=== PATIENT | female | born 1955 | race Caucasian/White ===

== ENCOUNTER → 2016-05-10 | Outpatient (CLI) | payer BC ==
[~2016-05-10] MED LIST: ACET325T95 PO; CALC600T9 PO; GLUC10007 PO; GLUC500C4 PO; IBUP-1459 PO; OXYC-57 PO
--- NOTE | 2016-05-11 12:25 | MAMMOGRAPHY REPORT ---
BILATERAL DIGITAL SCREENING MAMMOGRAM TOMOSYNTHESIS WITH CAD: 05/10/2016 CLINICAL HISTORY: Routine screening. Patient has no complaints. TECHNIQUE: Breast tomosynthesis in addition to standard 2D mammography was performed. Current study was also evaluated with a Computer Aided Detection (CAD) system. COMPARISON: Comparison is made to exams dated: 05/09/2015 mammogram, 04/29/2013 mammogram, 05/05/2014 mammogram, 04/16/2012 mammogram, 04/03/2011 mammogram, and 03/08/2010 mammogram - [facility]. BREAST COMPOSITION: The tissue of both breasts is extremely dense, which lowers the sensitivity of mammography. FINDINGS: No suspicious masses, calcifications, or areas of architectural distortion are noted in e ither breast. There has been no significant interval change compared to prior exams. Scattered bilat eral benign-appearing calcifications are not significantly changed. Asymmetry in the left subareola r breast on the MLO view is similar to prior exams including the 2007 exam, and felt to represent th e patient's normal fibroglandular tissue pattern. IMPRESSION: ACR BI-RADS CATEGORY 2: BENIGN There is no mammographic evidence of malignancy. A 1 year screening mammogram is recommended. The p atient will receive written notification of the results. Approximately 10% of breast cancers are not detected with mammography. A negative mammographic repor t should not delay biopsy if a clinically suggestive mass is present. Ragini Hilario M.D. /:05/11/2016 07:38:10 Director Of Sales And Marketing: Julita MOREL(Santos)(M), [facility] letter sent: Normal 1/2 BI-RADS Code: ACR BI-RADS Category 2: Benign
== END | disposition home or self-care (01) ==
LOC: C.MAMM 16:34
PROVIDERS: ATTEND Internal Medicine
DX: Z12.31 Encounter for screening mammogram for malignant neoplasm of breast (principal)

== ENCOUNTER → 2016-05-21 | Outpatient (CLI) | payer BC | END | disposition home or self-care (01) | LOC: C.LABSPEC 09:58 | PROVIDERS: ATTEND Internal Medicine | DX: Z12.11 Encounter for screening for malignant neoplasm of colon (principal) ==

== ENCOUNTER 2016-12-26 10:08 | Emergency (ER) | payer BC, OTHER ==
[~2016-12-26] VITALS: Ht 167.6 cm; Wt 56.6 kg
[~2016-12-26 10:08] MED LIST changes: -CALC600T9 PO; -GLUC500C4 PO; -OXYC-57 PO
[2016-12-26 10:17] VITALS: TEMP 36.6; Ht 167.6 cm; Wt 56.6 kg
--- NOTE | 2016-12-26 11:42 | DIAGNOSTIC IMAGING REPORT ---
CT FACIAL BONES-MXILLOFAC WITHOUT CT DOSE: 561.29 mGycm CLINICAL HISTORY: Facial pain status post trauma. Nasal deformity. COMPARISON STUDY: No previous studies for comparison. TECHNIQUE: Helical images were acquired in the transverse plane. The study was reviewed and analyzed on the independent 3-D workstation. A dose lowering technique was utilized adhering to the principles of ALARA. There is right frontal scalp edema. There is left maxilla sinus mucosal thickening. The pterygoid plates appear intact. The zygomatic arches appear intact. The globes appear intact. There is no evidence of orbital emphysema. The orbital alexander and floor appear intact. The mandibular condyles appear intact. There is nasal septal deviation to the right. There is a right-sided nasal septal spur. There are bilateral nasal bone fractures, with leftward displacement.. IMPRESSION: Bilateral nasal bone fractures. Electronically signed by: Geoff Mireles M.D. 12/26/2016 11:40 AM Dictated Date/Time: 12/26/2016 11:38 AM
--- NOTE | 2016-12-26 11:43 | DIAGNOSTIC IMAGING REPORT ---
HEAD WITHOUT CONTRAST (CT) CLINICAL HISTORY: 61 years-old Female presenting with fall, head injury, nose deformity. TECHNIQUE: Multidetector CT imaging of the head was performed without the use of intravenous contrast. IV contrast: None. A dose lowering technique was used consistent with the principles of ALARA (as low as reasonably achievable). COMPARISON: None. CT DOSE (mGy.cm): The estimated cumulative dose is 638.56 mGycm. FINDINGS: [employer] topogram: Unremarkable. Ventricles and sulci normal in size. Brain parenchyma normal in appearance with preserved trinidad-white differentiation. No mass effect or midline shift. No hemorrhage or acute territorial infarct. No extra-axial fluid collection. Paranasal sinuses and mastoid air cells clear. Soft tissue swelling over the right frontal region with possible minimal subgaleal hematoma. Leftward deviated and mildly comminuted nasal bone fractures. Rightward deviation of the osseous nasal septum. IMPRESSION: 1. No acute intracranial pathology. 2. Contusion and/or small subgaleal hematoma in the right frontal region without subjacent injury. 3. Leftward deviated a mildly comminuted nasal bone fractures. 4. Deviation of the osseous nasal septum could indicate acute or chronic injury. Electronically signed by: Lev Whyte M.D. 12/26/2016 11:41 AM Dictated Date/Time: 12/26/2016 11:39 AM
[2016-12-26 11:55] VITALS: BP 151/82; PULSE 62; O2SAT 100
--- NOTE | 2016-12-26 12:08 | EMERGENCY ROOM VISIT NOTE ---
History First contact with patient: 11:03 Chief Complaint: FACIAL PAIN/INJURY Stated Complaint: FELL ONTO CEMENT FLOOR/NOSE, FOREHEAD-WORK REL INJ History of Present Illness The patient is a 61 year old female who presents to the Emergency Room with complaints of facial pain after a fall. The patient states that she was at work this morning and tripped on a rug, landing onto her face. She struck her nose and the right side of her forehead. She states that she fell onto cement with a thin rug over top. She was initially "woozy," but states she feels much better now. She denies loss of consciousness. She denies confusion, blurred vision, slurred speech, nausea or vomiting. She denies any difficulty breathing. She states that her nose initially bled, but this has resolved. She rates her discomfort a 6/10. She did not take anything for pain. Review of Systems A complete 10 point review of systems was reviewed with the patient with pertinent positives and negatives as per history of present illness. All else were negative. Past Medical/Surgical History Medical Problems: (1) Pneumothorax (2) Pneumothorax, left Social History Smoking Status: Never Smoker Marital Status: Housing Status: lives with significant other Occupation Status: employed Current/Historical Medications Scheduled Calcium Carbonate-Vitamin D (Calcium + D), 1 TAB PO QAM Glucosamine Sulfate (Glucosamine), 1 CAP PO QAM Physical Exam Vital Signs Date Time Temp Pulse Resp B/P (MAP) Pulse Ox O2 Delivery O2 Flow Rate FiO2 12/26/16 11:55 62 18 151/82 100 Room Air 12/26/16 10:17 36.6 64 18 167/101 99 Room Air Physical Exam VITALS: Vitals are noted on the nurse's note and reviewed by myself. Vital signs stable. GENERAL: This is a 61-year-old female, in no acute distress, nondiaphoretic, well-developed well-nourished. SKIN: Ecchymosis of the right forehead. HEAD: Normocephalic atraumatic. EARS: External auditory canals clear, tympanic membranes pearly trinidad without erythema or effusion bilaterally. No hemotympanum. EYES: Pupils equal round and reactive to light and accommodation. Extraocular movements intact. NOSE: Mild edema and tenderness to palpation of the bridge of the nose. There is leftward deviation of the nasal septum. No septal hematoma. No bleeding from the nares. There is a superficial abrasion to the bridge of the nose. MOUTH: Mucous membranes moist. No loose or chipped teeth. NECK: Supple without nuchal rigidity. Cervical spine is nontender. HEART: Regular rate and rhythm without murmurs gallops or rubs. LUNGS: Clear to auscultation bilaterally without wheezes, rales or rhonchi. NEURO: Patient was alert and oriented to person place and time. No focal neurological deficits. Medical Decision & Procedures ER Provider Diagnostic Interpretation: HEAD WITHOUT CONTRAST (CT) IMPRESSION: 1. No acute intracranial pathology. 2. Contusion and/or small subgaleal hematoma in the right frontal region without subjacent injury. 3. Leftward deviated a mildly comminuted nasal bone fractures. 4. Deviation of the osseous nasal septum could indicate acute or chronic injury. CT FACIAL BONES-MXILLOFAC WITHOUT There is right frontal scalp edema. There is left maxilla sinus mucosal thickening. The pterygoid plates appear intact. The zygomatic arches appear intact. The globes appear intact. There is no evidence of orbital emphysema. The orbital alexander and floor appear intact. The mandibular condyles appear intact. There is nasal septal deviation to the right. There is a right-sided nasal septal spur. There are bilateral nasal bone fractures, with leftward displacement.. IMPRESSION: Bilateral nasal bone fractures. Medical Decision Differential diagnosis includes intracranial hemorrhage, skull fracture, concussion, nasal fracture, facial bone fracture, septal hematoma, among others. The patient was evaluated as above. CT of the head and facial bones were performed and read by radiology showing bilateral nasal bone fractures, but no other facial fractures and no acute intracranial abnormality. There is no evidence of septal hematoma on exam. The patient will need follow-up with ENT due to the deviation of her nasal septum. She was referred as an outpatient. She has no difficulty breathing and no active bleeding at this time. This does not appear to be an open fracture. Patient was informed of all findings. She declined any analgesics. She verbalized understanding of my assessment and treatment plan and was discharged home in good condition. Head Trauma GCS Score: 15 Medication Reconcilliation Current Medication List: was personally reviewed by me Blood Pressure Screening Patient's blood pressure: Elevated blood pressure Blood pressure disposition: Elevated BP felt to be situational Impression Primary Impression: Nasal bone fractures Departure Information Dispostion Home / Self-Care Condition GOOD Referrals RV. Quinones MD (PCP) Emma Lazar M.D. Patient Instructions [facility] Additional Instructions Your CT scan showed nasal bone fractures. You were given the information of an ENT (ears, note, throat) surgeon for follow up. Check with workman's compensation to see if they have a preferred ENT surgeon. For pain control, you can use the following [id number]-xya-bpirpzo medicines (if >12 yo): - Regular strength (325mg/tab) Tylenol (acetaminophen) 2 tabs every 4-6 hours as needed. Do not exceed 12 tablets in a 24 hour period. Avoid taking more than 4 grams (4000 mg) of Tylenol per day. This includes any other sources of acetaminophen you may take on a regular basis. - Regular strength (200 mg/tab) Advil (ibuprofen) 1-2 tabs every 4-6 hours as needed. Do not exceed a dose of 3200 mg per day. Ice the nose frequently. Return here for any difficulty breathing, increased bleeding, or any other new/ concerning symptoms. Problem Qualifiers Primary Impression: Nasal bone fractures Encounter type: initial encounter Fracture type: closed Qualified Codes: S02.2XXA - Fracture of nasal bones, initial encounter for closed fracture
[2016-12-26] MEDS ORDERED: GLUC500C4 PO (15:48)
[2016-12-26] MEDS ORDERED: CALC600T9 PO (15:48)
[2016-12-27] MEDS ORDERED: OXYC-57 PO (11:01)
== END 2016-12-26 12:21 | disposition home or self-care (01) ==
LOC: C.EDB 10:12 → C.EDC 12:21
DX: S02.2XXA Fracture of nasal bones, initial encounter for closed fracture (principal); W01.198A Fall on same level from slipping, tripping and stumbling with subsequent striking against other object, initial encounter; Y92.89 Other specified places as the place of occurrence of the external cause; Y99.0 Civilian activity done for income or pay

== ENCOUNTER → 2016-12-27 | Day surgery (SDC) | payer BC, OTHER ==
[2016-12-26 15:48] VITALS: Ht 167.6 cm; Wt 55.9 kg
[~2016-12-27] VITALS: Ht 167.6 cm; Wt 55.9 kg
[~2016-12-27] MED LIST changes: -ACET325T95 PO; +ATROPINE SULFATE 0.1 MG/ML 5ML SYR IV PRN; +BACITRACIN OINT 15 GM TUBE ONE; +CALC600T9 PO; +CEFAZOLIN 1000MG/55 ML D5W IV SCH; +DEXAMETHASONE SOD INJ 4 MG/ML VIAL ONE; +EpHEDrine SULFATE INJ 50 MG/ML AMP IV PRN; +FENTANYL CITRATE INJ 50 MCG/1 ML 2 ML VIAL IV PRN; +FENTANYL CITRATE INJ 50 MCG/1 ML 2 ML VIAL ONE; +GELATIN SPONGE 12-7MM ONE; -GLUC10007 PO; +GLUC500C4 PO; -IBUP-1459 PO; +LACTATED RINGER'S 1000ML 1,000 ML IV SCH; +LIDO 2%/EPINEPHRINE 1:100000 20 ML VIAL INFIL ONE; +LIDOCAINE 2% 20 MG/ML 5ML SYR ONE; +LIDOCAINE 4% MPF SOAK 5 ML = 1 DOSE TOP ONE; +MIDAZOLAM HCL 1 MG/ML 2ML VIAL ONE; +ONDANSETRON INJ 2 MG/ML 2 ML VIAL IV PRN; +ONDANSETRON INJ 2 MG/ML 2 ML VIAL ONE; +OXYC-57 PO; +OXYCODONE/ACETAMINOPHEN 5-325 TAB PO PRN; +PROPOFOL IV EMULSION 10 MG/ML 20 ML VIAL IV ONE; +SODIUM CHLORIDE 0.9% 1000ML 1,000 ML IV SCH
--- NOTE | 2016-12-27 07:36 | History and Physical: Surg Cnt ---
History & Physical Date Dec 27, 2016. Chief Complaint nasal fracture History of Present Illness The patient is a 61 year old female with complaints of tripping over rug at work , with a fall on her nose, suffering a fractured nose and septum with right- sided nasal obstruction, confirmed on CT scan in the emergency room. Past Medical/Surgical History Medical Problems: (1) Pneumothorax (2) Pneumothorax, left Additional History Hepatic Disease: No Endocrine Disorder: No Kidney Disease: No Hypertension: No Heart Disease: No Bleeding Tendencies: No Infectious Diseases: No Allergies Coded Allergies: No Known Allergies (Unverified , 12/26/16) Home Medications Scheduled Calcium Carbonate-Vitamin D (Calcium + D), 1 TAB PO QAM Glucosamine Sulfate (Glucosamine), 1 CAP PO QAM Physical Examination Skin: warm/dry, no rash Eyes: normal inspection, EOMI, sclerae normal ENT: normal ENT inspection, pharynx normal Head: normocephalic, atraumatic Neck: supple, no adenopathy, trachea midline Respiratory/Chest: lungs clear, normal breath sounds, no respiratory distress Cardiovascular: regular rate, rhythm, no edema, no murmur Abdomen / GI: normal bowel sounds, non tender Back: normal inspection Extremities: normal inspection, normal range of motion Neurologic/Psych: no motor/sensory deficits, alert, normal reflexes, oriented x 3 Diagnosis Nasal and septal fracture Plan of Treatment Septoplasty and closed reduction of nose
--- NOTE | 2016-12-27 09:52 | History & Physical Bridge Note ---
H&P Re-Evaluation Bridge Note: I have examined the patient, reviewed the History & Physical and in the interval since the performance of the History & Physical I have noted the following changes of clinical significance: No changes noted
[2016-12-27] MEDS: EpINEphrine INJ 1MG/ML AMP 1 MG/ML AMP ONE (10:14)
--- NOTE | 2016-12-27 11:02 | Discharge Instructions-SurgCtr ---
Discharge Instructions Date of Service Dec 27, 2016. Visit Reason for Visit: Nasal & Septal Fx Discharge Discharge Diagnosis / Problem: same Discharge Goals Goal(s): Improve function Activity Recommendations Activity Limitations: resume your previous activity Anesthesia . Post Anesthesia Instructions: If you have had General Anesthesia or IV Sedation: * Do not drive today. * Resume driving when surgeon permits. * Do not make important decisions or sign legal documents today. * Call surgeon for: 1. Temperature elevations greater than 101 degrees F. 2. Uncontrollable pain. 3. Excessive bleeding. 4. Persistent nausea and vomiting. 5. Medication intolerance (nausea, vomiting or rash). * For nausea and vomiting use only clear liquids such as: tea, soda, bouillon until nausea subsides, then gradually increase diet as tolerated. * If you have any concerns or questions, call your surgeon's office. If physician is unavailable and it is an emergency, call 911 or go to the nearest emergency room. . Instructions / Follow-Up Instructions / Follow-Up ACTIVITY RECOMMENDATIONS: * Being up and around is good, but no strenuous activity, heavy lifting or physical exertion for one week. * Keep your head elevated 30 degrees when lying down or sleeping. * Do not blow your nose for 48 hours, sniff back instead. * Avoid hot showers. OVER THE COUNTER MEDICATIONS: * You may use Tylenol * Avoid aspirin or aspirin containing products, e.g. as they may increase bleeding. SPECIAL CARE INSTRUCTIONS: * Expect to have bloody drainage from your nose and/or down your throat for one to three days. Change drip pad as needed. * Begin irrigating your nose with saline solution today, at least six to ten times per day and sniff back to help remove old clots or crust. * You may experience nasal and facial congestion, pain and pressure, this is normal. * Please call with any significant and/or progressive pain, redness, swelling around the eyes, visual changes, fever of 101.5 degrees F, active bleeding or any problems or concerns. * If active bleeding occurs, spray the nose three times at one minute intervals with Afrin spray and call or cell phone: . If unable to reach the doctor, go to the nearest Emergency Department. Special Diet: * Avoid extremely hot fluids. FOLLOW UP VISIT: Follow-up Visit with Dr. Lazar If not already scheduled, please call to schedule. Diet Recommendations Home Diet: no limitations Procedures Procedures Performed: Septoplasty, Closed Reduction Nasal Fracture Pending Studies Studies pending at discharge: no Medical Emergencies . Who to Call and When: Medical Emergencies: If at any time you feel your situation is an emergency, please call 911 immediately. . Non-Emergent Contact Non-Emergency issues call your: Primary Care Provider . . "Provider Documentation" section prepared by Emma Lazar. Zoya PA Drug Monitoring Program Search Results: no issues identified
--- NOTE | 2016-12-27 11:33 | OPERATIVE REPORT ---
DATE OF OPERATION: 12/27/2016 PREOPERATIVE DIAGNOSIS: Nasal and septal fracture. POSTOPERATIVE DIAGNOSIS: Same. PROCEDURE: Septoplasty and closed reduction of the nose. SURGEON: Dr. Lazra. ANESTHESIA: General LMA. COMPLICATIONS: None. BLOOD LOSS: 20 mL. HISTORY OF PRESENT ILLNESS: A 61-year-old lady who tripped at work on the carpet and fell on her nose with documented fractures and septal deviation on CT scan. DESCRIPTION OF PROCEDURE: The patient brought to the operating room and placed in supine position. General anesthesia was induced, prepped, draped in usual sterile manner. Nose decongested using topical cottonoids with a solution of 4 mL of 4% Xylocaine mixed with 1 mL of epinephrine. Injection of 2% Xylocaine 1:1,000 strength epinephrine was also used. The right nasal bone had to be elevated using a padded freer elevator and the left nasal bone had to be reduced back to the midline. The septum was still severely bent to the right with obstruction. Therefore, a left hemitransfixion incision was made and mucoperichondrium was elevated off the left side of the septum. Superior inferior tunnels were elevated and then bilateral posterior tunnels were elevated after the cartilage from the vomer maxillary crest and from the perpendicular plate of the ethmoid posteriorly. A strip of cartilage was removed from inferiorly and the deviated portion of the perpendicular plate of the ethmoid, which was severely bent to the right was removed using the Andrew-Cori rongeurs and the Cassie forceps bringing the septum to the midline. The septum was closed using continuous mattress suture of 4-0 plain gut. Anterior nasal packing of Gelfoam was placed and a Reji splint was placed on the dorsum of the nose. The patient tolerated the procedure well and was taken to recovery area in satisfactory condition. I attest to the content of the Intraoperative Record and any orders documented therein. Any exception s are noted below.
--- NOTE | 2016-12-27 11:35 | Anesthesia Progress Nt - [facility] ---
Anesthesia Post Op Note Date & Time Dec 27, 2016 at 11:35 Vital Signs Pain Intensity: 4.0 Vital Signs Past 12 Hours Date Time Temp Pulse Resp B/P (MAP) Pulse Ox O2 Delivery O2 Flow Rate FiO2 12/27/16 11:01 36.5 65 12 172/105 100 Humidified Oxygen 6 Mask 12/27/16 08:13 36.5 57 16 134/89 (104) 98 Room Air Notes Mental Status: alert / awake / arousable, participated in evaluation Pt Amnestic to Procedure: Yes Nausea / Vomiting: adequately controlled Pain: adequately controlled Airway Patency, RR, SpO2: stable & adequate BP & HR: stable & adequate Hydration State: stable & adequate Anesthetic Complications: no major complications apparent
[2016-12-27 11:55] VITALS: TEMP 36.7
[2016-12-27 13:20] VITALS: BP 163/94; PULSE 55; O2SAT 99
== END | disposition home or self-care (01) ==
LOC: X.SURG 08:05
PROVIDERS: ATTEND Otolaryngology
DX: S02.2XXA Fracture of nasal bones, initial encounter for closed fracture (principal); W01.0XXA Fall on same level from slipping, tripping and stumbling without subsequent striking against object, initial encounter; Z79.899 Other long term (current) drug therapy

== ENCOUNTER → 2017-05-14 | Outpatient (CLI) | payer OTHER ==
[~2017-05-14] MED LIST changes: -ATROPINE SULFATE 0.1 MG/ML 5ML SYR IV PRN; -BACITRACIN OINT 15 GM TUBE ONE; -CEFAZOLIN 1000MG/55 ML D5W IV SCH; -DEXAMETHASONE SOD INJ 4 MG/ML VIAL ONE; -EpHEDrine SULFATE INJ 50 MG/ML AMP IV PRN; -FENTANYL CITRATE INJ 50 MCG/1 ML 2 ML VIAL IV PRN; -FENTANYL CITRATE INJ 50 MCG/1 ML 2 ML VIAL ONE; -GELATIN SPONGE 12-7MM ONE; -LACTATED RINGER'S 1000ML 1,000 ML IV SCH; -LIDO 2%/EPINEPHRINE 1:100000 20 ML VIAL INFIL ONE; -LIDOCAINE 2% 20 MG/ML 5ML SYR ONE; -LIDOCAINE 4% MPF SOAK 5 ML = 1 DOSE TOP ONE; -MIDAZOLAM HCL 1 MG/ML 2ML VIAL ONE; -ONDANSETRON INJ 2 MG/ML 2 ML VIAL IV PRN; -ONDANSETRON INJ 2 MG/ML 2 ML VIAL ONE; -OXYCODONE/ACETAMINOPHEN 5-325 TAB PO PRN; -PROPOFOL IV EMULSION 10 MG/ML 20 ML VIAL IV ONE; -SODIUM CHLORIDE 0.9% 1000ML 1,000 ML IV SCH
--- NOTE | 2017-05-15 15:23 | MAMMOGRAPHY REPORT ---
BILATERAL DIGITAL SCREENING MAMMOGRAM TOMOSYNTHESIS WITH CAD: 05/14/2017 CLINICAL HISTORY: Routine screening. Patient has no complaints. TECHNIQUE: Breast tomosynthesis in addition to standard 2D mammography was performed. Current study was also evaluated with a Computer Aided Detection (CAD) system. COMPARISON: Comparison is made to exams dated: 05/10/2016 mammogram, 05/09/2015 mammogram, 04/29/2013 m ammogram, 05/05/2014 mammogram, 04/16/2012 mammogram, and 03/08/2010 mammogram - [facility]. BREAST COMPOSITION: The tissue of both breasts is extremely dense, which lowers the sensitivity of m ammography. FINDINGS: No suspicious masses, calcifications, or areas of architectural distortion are noted in ei ther breast. There has been no significant interval change compared to prior exams. Scattered bilater al benign-appearing calcifications are not significantly changed. IMPRESSION: ACR BI-RADS CATEGORY 2: BENIGN There is no mammographic evidence of malignancy. A 1 year screening mammogram is recommended. The pa tient will receive written notification of the results. Approximately 10% of breast cancers are not detected with mammography. A negative mammographic report should not delay biopsy if a clinically suggestive mass is present. Ragini Hilario M.D. ah/:05/14/2017 17:01:23 Slitter Processed Film: Samina MOREL(Santos)(M), [facility] letter sent: Normal 1/2 BI-RADS Code: ACR BI-RADS Category 2: Benign
== END | disposition home or self-care (01) ==
LOC: C.MAMM 16:12
PROVIDERS: ATTEND Internal Medicine
DX: Z12.31 Encounter for screening mammogram for malignant neoplasm of breast (principal)

== ENCOUNTER → 2017-06-10 | Outpatient (CLI) | payer OTHER | END | disposition home or self-care (01) | LOC: C.PAPS 11:23 | PROVIDERS: ATTEND Obstetrics & Gynecology | DX: Z01.419 Encounter for gynecological examination (general) (routine) without abnormal findings (principal) ==